=== PATIENT | female | born 1990 | race Caucasian/White ===

== ENCOUNTER 2019-05-05 19:38 | Emergency (ER) | payer MEDICAID, OTHER ==
[~2019-05-05] VITALS: Ht 162.6 cm; Wt 113.4 kg
[2019-05-05 20:20] VITALS: BP 141/75
[2019-05-05] MEDS ORDERED: TYLENOL PO STA (20:25)
[2019-05-05] MEDS ORDERED: TYLENOL PO ONE (20:25)
--- NOTE | 2019-05-05 20:29 | ER.PDOC ---
General Chief Complaint: Requesting Medical Care Stated Complaint: POSS FLU Time seen by MD: 20:24 Source: patient History of Present Illness Initial Comments Patient has fever and cough onset today. 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 Timing/Duration: gradual Severity: mild Associated Symptoms: fever/chills, cough Worsen By: deep breathing Constitutional: chills, fever EENTM: no symptoms reported Respiratory: cough Cardiovascular: no symptoms reported Gastrointestinal: no symptoms reported Musculoskeletal: no symptoms reported Skin: no symptoms reported Past Medical History Medical History: no pertinent history Surgical History: no surgical history Family History Significant Family History: no pertinent family hx Social History Smoking: non-smoker Physical Exam General Appearance: alert, no distress Eye: eyes nml inspection, lids & conjunct. nml Ear: ear nml Nose: nose nml Throat: pharynx nml Neck: nml inspection, supple Respiratory: no resp.distress, breath sounds nml Abdomen: non-tender CVS: reg rate & rhythm, heart sounds nml Skin: color nml, no rash NEURO/PSYCH: oriented x 3 Results/Orders Results/Orders Orders - IAN MARIA DO Influenza A&B (05/05/19 20:18) Strep Screen (05/05/19 20:18) Acetaminophen (Tylenol) (05/05/19 20:25) Vital Signs Date Time Temp Pulse Resp B/P (MAP) Pulse Ox O2 Delivery O2 Flow Rate FiO2 05/05/19 20:20 100.1 117 19 96 05/05/19 20:20 100.1 117 19 05/05/19 20:20 100.1 117 19 141/75 (97) 96 Room Air Administered Medications Medications (Trade) Dose Ordered Sig/Marielena Route PRN Reason Start Time Stop Time Status Last Admin Dose Admin Acetaminophen (Tylenol) 1,000 mg STAT STAT PO 05/05/19 20:25 05/05/19 20:26 UNV 05/05/19 20:35 1,000 MG Laboratory Tests Test 05/05/19 20:21 Influenza Type A Antigen NEGATIVE (NEG) Influenza B Immunofluorescence NEGATIVE (NEG) Group A Streptococcus Screen NEGATIVE (NEGATIVE) Progress Progress negative strep, flu negative; however, patient has exposure to Flu A and is symptomatic Departure Time of Disposition: 21:16 Disposition: 01 HOME, SELF-CARE Impression: Primary Impression: Influenza Additional Impression: Fever Condition: Improved Patient Instructions: Influenza, Adult, [id number] Referrals: KULDIP PERKINS MD (PCP) PRIMARY CARE PROVIDER Additional Instructions: Alternate tylenol and motrin as directed every 3-4 hours as needed for fever. Drink plenty of fluids. Rest. Return to ER if you experience any difficulty breathing. Duration or Time Spent with Pa: 1 hour Problem Qualifiers Additional Impression: Fever Fever type: unspecified Qualified Codes: R50.9 - Fever, unspecified IAN MARIA DO May 05, 2019 20:29
[2019-05-05] MEDS ORDERED: TAMIFLU PO STA (21:27)
[2019-05-06] MEDS ORDERED: TAMIFLU PO ONE (09:54)
== END 2019-05-05 21:34 | disposition home or self-care (01) ==
LOC: ER 19:38 → MERGE 19:38 → ER 21:34
DX: J11.1 Influenza due to unidentified influenza virus with other respiratory manifestations (principal)
CPT/HCPCS: 87070; 87804; 87880; 99284; G9019

== ENCOUNTER 2019-05-12 21:27 | Emergency (ER) | payer OTHER ==
[~2019-05-12] VITALS: Ht 162.6 cm; Wt 115.2 kg
[2019-05-12 21:36] VITALS: BP 120/81
--- NOTE | 2019-05-12 21:59 | ER.PDOC ---
General Chief Complaint: General Complaint Stated Complaint: POSS MASTITIS TRAVEL OUT OF US: No Time seen by MD: 21:56 Source: patient Exam Limitations: no limitations History of Present Illness Initial Comments Patient c/o bilateral breast discomfort. She stopped breast feeding 2 weeks ago and has had breast fullness and discomfort since that time. She googled her sx and believes she may have mastitis. She denies redness, warmth or drainage from either breast. Timing/Duration: 1 week, constant Severity: moderate Associated Symptoms: denies symptoms Allergies: Coded Allergies: No Known Allergies (Unverified , 07/30/16) Home Meds No Active Prescriptions or Reported Meds Past Medical History Medical History: no pertinent history Surgical History: tubal Social History Alcohol Use: none Drug Use: none Review of Systems Constitutional: no symptoms reported EENTM: no symptoms reported Respiratory: no symptoms reported Cardiovascular: no symptoms reported Gastrointestinal: no symptoms reported Genitourinary: no symptoms reported Musculoskeletal: no symptoms reported Skin: see HPI Physical Exam General Appearance: No Apparent Distress, WD/WN Respiratory: chest non-tender, lungs clear, normal breath sounds, no respiratory distress, no accessory muscle use CVS: reg rate & rhythm, no murmur Gastrointestinal: Normal Bowel Sounds Extremities: Normal Range of Motion Neurologic/Psychiatric: Alert, Normal Mood/Affect, Oriented x 3 Skin: Normal Color, Warm/Dry, Other (there is no erythema or warmth to either breast; both are slightly TTP; no nodules or drainage on exam) Lymphatic: No Adenopathy Results/Orders Results/Orders Vital Signs Date Time Temp Pulse Resp B/P (MAP) Pulse Ox O2 Delivery O2 Flow Rate FiO2 05/12/19 21:36 98.4 81 18 05/12/19 21:36 98.4 81 18 98 Course Sepsis Screening Results: Posi: POSITIVE SEPSIS RISK Duration or Total Time Spent w: 45 mins Vitals & review Data Vital Sign - Last 24 Hours 05/12/19 05/12/19 21:36 21:36 Temp 98.4 98.4 Pulse 81 81 Resp 18 18 Pulse Ox 98 Sepsis Infection Criteria Pres: None O2 Sat by Pulse Oximetry: 98 Departure Time of Disposition: 21:58 Disposition: 01 HOME, SELF-CARE Impression: Primary Impression: Breast tenderness in female Condition: Stable Patient Instructions: Breast Tenderness Referrals: KULDIP PERKINS MD (PCP) PRIMARY CARE PROVIDER Additional Instructions: Return to ER if breast become red/hot to touch, fever or any other concerns. Scripts No Active Prescriptions or Reported Meds Duration or Time Spent with Pa: 15 minutes IAN MARIA DO May 12, 2019 21:59
== END 2019-05-12 22:08 | disposition home or self-care (01) ==
LOC: ER 21:27
DX: N64.4 Mastodynia (principal); Z98.51 Tubal ligation status
CPT/HCPCS: 99281